=== PATIENT | female | born 1995 | race Caucasian/White ===

== ENCOUNTER 2019-09-09 06:30 | Day surgery (SDC) | payer OTHER, BC ==
[~2019-09-09] VITALS: Ht 154.9 cm; Wt 49.4 kg
--- NOTE | ~2019-09-09 | OR ---
[facility] [address], [place] [address] Draft DATE OF OPERATION: 09/09/2019 SURGEON: Keyla Hood MD PREOPERATIVE DIAGNOSIS: Umbilical hernia. POSTOPERATIVE DIAGNOSIS: Umbilical hernia, 1.5 cm defect. PROCEDURE: Repair of umbilical hernia without mesh. ANESTHESIA: General LMA, Jermaine Farfan CRNA and local 10 mL of 0.25% Marcaine with epinephrine. INDICATIONS: This 24-year-old woman is noted to have an umbilical hernia. This has been quite prominent during the course of her pregnancies in the past. Her last was approximately 20 months ago. She has had no episodes of incarceration or severe point pain during the course of her gestational previously. An umbilical defect is noted, though it is not large. She is admitted at this time to undergo repair of the hernia, possibly to include implantation of Prolene mesh. The risks of bleeding, infection, recurrence, and other unforeseen complications was reviewed in detail with her in detail. She understands and wished to proceed. FINDINGS: The defect was about the size of the tip of my finger, I would estimate it 1.5 cm at most. It did have omentum within it. The area was freed and was deemed unnecessary to implant Prolene mesh in this situation. On that basis, the hernia was repaired primarily with reapproximation of the fascial edges. Interrupted horizontal mattress 0-Prolene suture. There were no complications. DESCRIPTION OF PROCEDURE: The patient was brought to the operating room, given a general anesthetic by LMA technique. The abdomen was prepared with a chlorhexidine solution and draped sterilely. She received preoperative antibiotic Ancef. Sequential compression device stockings were used as well. Palpation of the umbilical area showed a defect about the size of the tip of my finger. There was no sign of obvious incarcerated component. A curvilinear incision was made to the left of the umbilical fold. Dissection carried PATIENT NAME: DALE BARAKAT OPERATIVE REPORT DATE OF : [birth year] REPORT #: [id number] PHYSICIAN: KEYLA HOOD MD PCP: CHEPE DEL REAL MD REPORT IS CONFIDENTIAL AND NOT TO BE RELEASED WITHOUT AUTHORIZATION [facility] [address], [place] [address] Draft through the subcutaneous tissue with electrocautery. The overlying dermis of the umbilicus was freed and the underlying defect could be more fully evaluated, there appeared to be some omental fat within it. The fascia was freed circumferentially with electrocautery. The size of the defect was about 1.5 cm. The properitoneal space was bluntly with the end of a forceps. The defect was small enough that a primary repair without implantation of mesh was deemed most appropriate. The fascial edges were reapproximated transversely with interrupted 0-Prolene suture in a vertical mattress configuration, approximately five repair sutures were placed. A 10 mL of 0.25% Marcaine with epinephrine injected locally. The Michael's layer was reapproximated with interrupted 3-0 Vicryl and skin closed with running subcuticular 3-0 Vicryl. Steri-Strips were applied. She tolerated the procedure well and was anticipated to be extubated in the OR to transport to recovery room.. Keyla Hood MD JM/MODL /[id number] cc: Chepe Del Real MD Copies: CHEPE DEL REAL MD ~ PATIENT NAME: DALE BARAKAT OPERATIVE REPORT DATE OF : [birth year] REPORT #: [id number] PHYSICIAN: KEYLA HOOD MD PCP: CHEPE DEL REAL MD REPORT IS CONFIDENTIAL AND NOT TO BE RELEASED WITHOUT AUTHORIZATION
[~2019-09-09 06:30] MED LIST: CAMILA0.35 MG PO; IBUPROFEN800 MG PO; IRON240 MG PO; NORCO 5-325 TA1 EACH PO; PRENATAL VITAM1 EAC7 PO
[2019-09-09] MEDS ORDERED: FALMINA1 EACH PO (06:52)
[2019-09-09] MEDS ORDERED: IBUPROFEN600 MG PO (08:20)
[2019-09-09] MEDS ORDERED: TYLENOL EXTRA500 MG PO (08:20)
[2019-09-09] MEDS ORDERED: OXYCODON-ACETA1 EAC2 PO (08:20)
--- NOTE | 2019-09-09 08:29 | NUR ---
09/09/19 0828 Mayela Estrella 0819 PT ARRIVED TO PACU ON 6L VIA MASK, RESP RATE 7. PT HEAD TURNED TO SIDE AND RESP EVEN AND UNLABORED. 08 PT WOKE TO PAINFUL STIMULI AND THEN EYES CLOSED AGAIN. 0828 PT WOKE AND STARTS MOVING ARMS, RN REORIENTING PT TO PACU. VSS.
--- NOTE | 2019-09-09 09:02 | NUR ---
PT ARRIVES TO DS RM 5 FROM PACU DROWSY. PT AROUSES TO VERBAL STIMULI AND QUICKLY FALLS BACK TO SLEEP. PT ABLE TO RATE PAIN 4/10 WHEN ASKED AND STATES SLIGHT NAUSEA. LIGHTS DIMMED IN ROOM, SISTER AT BEDSIDE. CALL LIGHT WITHIN REACH. ICED WATER AND CRACKERS AT BEDSIDE.
[2019-09-09] MEDS ORDERED: PERCOCET 7.5-31 EACH PO (09:31)
--- NOTE | 2019-09-09 10:03 | NUR ---
PT CONT TO REST WITH EYES CLOSED ON ENTRANCE TO PT ROOM. PT ONLY OPENS EYES WITH BP CUFF INFLATING AND IS ABLE TO RATE PAIN 6/10 IN ABD "STINGING." PT QUICKLY FALLS BACK TO SLEEP. WARM BLANKET PROVIDED, SISTER REMAINS AT BEDSIDE. CALL LIGHT WITHIN REACH.
--- NOTE | 2019-09-09 10:32 | NUR ---
[place] FREIRE SHARED WITH ME HER CONCERN AT HOW ANXIOUS PT SEEMS TO BE. PT DID APPEAR SOMEWHAT ANXIOUS. HAD GOOD DEBRIEF, ENCOURAGED PT TO BREATH AND PT REQUESTED PRAYER.
--- NOTE | 2019-09-09 10:36 | NUR ---
PT USES CALL LIGHT TO NOTIFY RN OF URGE TO VOID. PT UP OUT OF BED WITH RN ASSIT, SLOW BUT STEADY GAIT. PT DENIES NAUSEA OR DIZZINESS. ABLE TO VOID 500 MLS YELLOW URINE WITH NO PROBLEM. BACK TO BED, PROVIDED PAIN MEDICINE AND PUDDING. SCD'S IN PLACE, CALL LIGHT WITHIN REACH.
--- NOTE | 2019-09-09 11:10 | NUR ---
PT TOLERATES CRACKERS AND PUDDING WELL, DENIES ANY NAUSEA. PT RATES PAIN 4/10 AND FEELS SHE IS READY TO DC HOME. PT DRESSES SELF WITH SISTER AT BEDSIDE. 1130: DC INSTRUCTIONS PRESENTED TO PT, ALL QUESTIONS ADDRESSED. PAIN PRESCRIPTION IN DC FOLDER PROVIDED TO PT. PT DC'S FROM DS RM 5 VIA WC TO PERSONAL VEHICLE AT MAIN HOSPITAL ENTRANCE TO HOME.
== END 2019-09-09 11:41 | disposition home or self-care (01) ==
LOC: DS 06:30
PROVIDERS: Surgery
PROC: 0WQF0ZZ Repair Abdominal Wall, Open Approach (ICD-10-PCS; principal; 2019-09-09 06:45)
DX: K42.9 Umbilical hernia without obstruction or gangrene (principal)
CPT/HCPCS: 00750; C1781; J0690; J1100; J1644; J1885; J2001; J2250; J2405; J2704; J3010; J7121